=== PATIENT | female | born 1975 | race Caucasian/White ===

== ENCOUNTER 2021-02-08 13:22 | Emergency (ER) | payer BC ==
[~2021-02-08] VITALS: Ht 170.2 cm; Wt 68.3 kg
[2021-02-08 14:33] LABS: BASO % 0.3 % (0.0-1.0); EOS % 0.3 % (0.0-3.0); HEMATOCRIT 28.2 % (36.0-47.0); HEMOGLOBIN 8.3 g/dl (12.0-15.5); LYMPH # 0.8 10^3/uL (1.5-5.0); LYMPH % 7.5 % (24.0-44.0); MEAN CORPUSCULAR HEMOGLOBIN 25.4 pg (27.0-33.0); MEAN CORPUSCULAR HGB CONC 29.4 g/dl (32.0-36.5); MEAN CORPUSCULAR VOLUME 86.2 fl (80.0-96.0); MONO # 0.6 10^3/uL (0.0-0.8); MONO % 5.8 % (2.0-8.0); NEUTROPHILS # 8.8 10^3/uL (1.5-8.5); NEUTROPHILS % 85.3 % (36.0-66.0); PLATELET COUNT, AUTOMATED 434 10^3/uL (150-450); RED BLOOD COUNT 3.27 10^6/uL (4.00-5.40); WHITE BLOOD COUNT 10.3 10^3/uL (4.0-10.0)
[2021-02-08] MEDS ORDERED: NS 500 ML IV ONE (14:40)
[2021-02-08] MEDS ORDERED: ISOVUE-370 76% 100ML VIAL As Ordered ONE (14:44)
[2021-02-08 14:55] LABS: ALBUMIN 3.2 GM/DL (3.2-5.2); BILIRUBIN,DIRECT 0.1 MG/DL (0.0-0.2); BILIRUBIN,TOTAL 0.3 MG/DL (0.2-1.0); TOTAL PROTEIN 6.7 GM/DL (6.4-8.2)
--- NOTE | 2021-02-08 15:01 | REP ---
INDICATION: chills, sp procedure COMPARISON: None. TECHNIQUE: Portable AP view of the chest FINDINGS: The mediastinum and cardiac silhouette are within normal limits for portable technique. The lung donohue are clear without acute consolidation, effusion, or pneumothorax. Skeletal structures are intact. IMPRESSION: No acute cardiopulmonary process appreciated. <Electronically signed by Guzman Dang > 02/08/21 [id number]
--- NOTE | 2021-02-08 15:32 | REP ---
INDICATION: reeent fibroid emboliz w recent mild retroperit bld. COMPARISON: None TECHNIQUE: Axial contrast-enhanced images from the lung bases to the pubic symphysis using 100 cc Isovue 370 intravenous contrast material. Coronal and sagittal reformations obtained. This CT examination was performed using the following dose reduction techniques: Automated exposure control, adjustment of mA and/or kv according to the patient's size, and the use of iterative reconstruction technique. FINDINGS: There is a 9 cm round somewhat heterogeneous presumed mass versus collection with small amounts of internal gas or fat distending the uterus and given the history of recent fibroid embolization, this may represent the degenerating fibroid and/or intrauterine hematoma. Less likely would be phlegmon/forming abscess. There is small amount of fluid and infiltration within the pelvis extending to the right adnexa and right groin which may represent a small amount of hemorrhagic fluid given its density but without discernible collection. The ovaries demonstrate small cystic changes. No ascites. No pneumoperitoneum. Liver, spleen, pancreas, gallbladder, bilateral adrenal glands and kidneys are normal. The enteric system is without obstruction or acute inflammatory process. Normal appendix identified in the right lower quadrant. Scattered sigmoid diverticula noted without acute diverticulitis. Pelvis demonstrates uterus and surrounding changes as described above along with partially collapsed normal bladder. Abdominal aorta and vasculature appear normal. Musculoskeletal structures intact and without acute process. Lung bases are clear. IMPRESSION: 9 cm somewhat mixed density masslike collection within the uterus with small amounts of internal gas suggested. This may represent the degenerating embolized fibroid and/or intrauterine hematoma. Correlation and follow-up is recommended to exclude the possibility of forming phlegmon/abscess. Small amount of fluid and presumed hemorrhagic stranding in the pelvis extending to the right groin likely related to recent procedure. <Electronically signed by Guzman Dang > 02/08/21 [id number]
[2021-02-08 18:25] VITALS: BP 138/62
--- NOTE | 2021-02-08 19:28 | ECGEPIP ---
[facility] - ED Test Date: 2021-02-08 Pat Name: HANY LIZ Department: Room: - Gender: Female Orthopaedic Surgeon: LAQUITA : 1975 Requested By: Camilla Michel Order Number: [id number] Reading MD: Camilla Michel Measurements Intervals [place] Rate: 87 P: 62 ME: 154 QRS: 32 QRSD: 72 T: 18 QT: 358 QTc: 430 Interpretive Statements Normal sinus rhythm Septal infarct , age undetermined Nonspecific ST T wave changes No prior ECG for comparison Electronically Signed on 02-08-2021 19:28:24 EDT by Camilla Michel
== END 2021-02-08 18:26 | disposition home or self-care (01) ==
LOC: M ED 13:22
DX: G89.18 Other acute postprocedural pain (principal); R42 Dizziness and giddiness; R68.83 Chills (without fever); R10.9 Unspecified abdominal pain
CPT/HCPCS: 71045; 74177; 80047; 80076; 81001; 83690; 85025; 86850; 86900; 86901; 93005; 93041; 96360; 96361; 99284; Q9967